=== PATIENT | male | born 1935 | race Asian ===

== ENCOUNTER 2016-12-03 03:06 | Emergency (ER) | payer OTHER ==
[~2016-12-03] VITALS: Ht 167.6 cm; Wt 61.8 kg
[~2016-12-03 03:06] MED LIST: AMIT10TA6 GT; ASPI-482 PO; ATOR10TA84 PO; BENA40TA67 PO; FEXO180T PO; METO-391 PO; OLME40 PO; RABE20TA60 PO
[2016-12-03] MEDS ORDERED: IBUPROFEN 600 MG TABLET PO ONE (03:30)
[2016-12-03] MEDS ORDERED: ALLO100T PO (03:31)
[2016-12-03] MEDS ORDERED: VITAD1000 PO (03:31)
[2016-12-03] MEDS ORDERED: LOSA50TA37 PO (03:31)
[2016-12-03] MEDS ORDERED: HYDR25TA84 PO (03:31)
[2016-12-03] MEDS ORDERED: CARV12 PO (03:31)
[2016-12-03] MEDS ORDERED: LEVO5TAB13 PO (03:31)
[2016-12-03] MEDS ORDERED: DONE5TAB5 PO (03:31)
[2016-12-03] MEDS ORDERED: ASPI81 PO (03:31)
[2016-12-03] MEDS ORDERED: OS500 PO (03:31)
[2016-12-03 03:35] LABS: BASOPHILS % (AUTO) 0.1 % (0.0-2.0); EOSINOPHILS % (AUTO) 0.5 % (1.0-6.0); HEMATOCRIT 39.7 % (41-53); HEMOGLOBIN 13.5 g/dL (13.5-17.5); LYMPHOCYTES # (AUTO) 1.1 K/uL (1.0-4.8); LYMPHOCYTES % (AUTO) 8.2 % (22.0-44.0); MEAN CORPUSCULAR HEMOGLOBIN 29.9 pg (26.0-34.0); MEAN CORPUSCULAR VOLUME 88 fL (80-100); MONOCYTES # (AUTO) 1.3 K/uL (0.1-1.0); MONOCYTES % (AUTO) 10.2 % (2.0-9.0); NEUTROPHILS # (AUTO) 10.7 K/uL (1.8-7.7); PLATELET COUNT (AUTO) 252 K/uL (150-450); RED BLOOD CELL COUNT(AUTO) 4.51 MIL/uL (4.50-5.90); RED CELL DISTRIBUTION WIDTH 15.3 % (11.5-14.5); WHITE BLOOD COUNT (AUTO) 13.2 K/uL (4.5-11.0)
[2016-12-03] MEDS ORDERED: LIDOCAINE HCL 1% 10 ML VIAL INJ ONE (03:45)
[2016-12-03 03:46] LABS: CALCIUM, TOTAL 9.4 mg/dL (8.8-10.5); CREATININE 1.18 mg/dL (0.60-1.30); POTASSIUM 3.1 mmol/L (3.5-5.1)
[2016-12-03 03:51] LABS: TOTAL PROTEIN, SERUM 7.2 g/dL (6.4-8.2)
[2016-12-03] MEDS ORDERED: POVIDONE-IODINE 10% 15 ML SOLUTION UD TP ONE (04:00)
[2016-12-03] MEDS ORDERED: OxyCODONE HCL/ACETAMINOPHEN 5-325 MG TABLET PO ONE (04:15)
[2016-12-03] MEDS ORDERED: MORPHINE SULFATE 4 MG/ML SYRINGE IM ONE (04:45)
[2016-12-03 05:00] VITALS: BP 170/83
== END 2016-12-03 05:14 | disposition home or self-care (01) ==
LOC: EMS 03:06
DX: M70.51 Other bursitis of knee, right knee (principal); E87.6 Hypokalemia; Z79.82 Long term (current) use of aspirin
CPT/HCPCS: 20610; 36415; 73562; 80053; 85025; 96372; 99285; J2270; J3490

== ENCOUNTER → 2017-01-06 | Outpatient (CLI) | payer OTHER ==
[~2017-01-06] MED LIST changes: +ALLO100T PO; -AMIT10TA6 GT; -ASPI-482 PO; +ASPI81 PO; +ATOR20TA86 PO; -BENA40TA67 PO; +CARV12 PO; +DONE5TAB5 PO; -FEXO180T PO; +HYDR25TA84 PO; +IBUP-2071 PO; +LEVO5TAB13 PO; +LOSA50TA37 PO; -METO-391 PO; -OLME40 PO; +OS500 PO; +OXYC-530 PO; -RABE20TA60 PO; +VITAD1000 PO
== END | disposition home or self-care (01) ==
LOC: RADPV 12:17
PROVIDERS: ATTEND Internal Medicine Nephrology
DX: N18.3 Chronic kidney disease, stage 3 (moderate) (principal); N28.1 Cyst of kidney, acquired
CPT/HCPCS: 76770

== ENCOUNTER 2017-01-17 11:56 | Emergency (ER) | payer OTHER ==
[~2017-01-17] VITALS: Ht 167.6 cm; Wt 63.6 kg
[~2017-01-17 11:56] MED LIST changes: -ATOR20TA86 PO; -IBUP-2071 PO; -OXYC-530 PO
[2017-01-17] MEDS ORDERED: IBUP-2071 PO (12:07)
[2017-01-17] MEDS ORDERED: OXYC-530 PO (12:07)
[2017-01-17] MEDS ORDERED: ATOR20TA86 PO (12:15)
[2017-01-17] MEDS ORDERED: IBUPROFEN 600 MG TABLET PO ONE (12:15)
[2017-01-17] MEDS ORDERED: ACETAMINOPHEN 325 MG TABLET PO ONE (12:15)
[2017-01-17 12:33] LABS: BASOPHILS % (AUTO) 0.3 % (0.0-2.0); HEMATOCRIT 40.2 % (41-53); HEMOGLOBIN 13.5 g/dL (13.5-17.5); LYMPHOCYTES # (AUTO) 1.2 K/uL (1.0-4.8); LYMPHOCYTES % (AUTO) 16.9 % (22.0-44.0); MEAN CORPUSCULAR HEMOGLOBIN 29.9 pg (26.0-34.0); MEAN CORPUSCULAR HGB CONC 33.5 G/dL (31.0-37.0); MEAN CORPUSCULAR VOLUME 89 fL (80-100); MONOCYTES # (AUTO) 0.8 K/uL (0.1-1.0); NEUTROPHILS % (AUTO) 70.8 % (40.0-70.0); PLATELET COUNT (AUTO) 238 K/uL (150-450); RED CELL DISTRIBUTION WIDTH 17.1 % (11.5-14.5)
[2017-01-17 12:37] LABS: RBC MORPHOLOGY COMMENT ABNORMAL RBC MORPH
[2017-01-17 12:42] LABS: ANION GAP 8 mmol/L (8-16); CALCIUM, TOTAL 8.6 mg/dL (8.8-10.5); CARBON DIOXIDE 27 mmol/L (22-29); CHLORIDE 105 mmol/L (98-107); CREATININE 1.05 mg/dL (0.60-1.30); GLOMERULAR FILTR. RATE CALC > 60 mL/min (>60); POTASSIUM 3.2 mmol/L (3.5-5.1); SODIUM SERUM 140 mmol/L (136-145); UREA NITROGEN, BLOOD 17 mg/dL (7-18)
[2017-01-17 13:10] VITALS: BP 180/86
== END 2017-01-17 13:23 | disposition home or self-care (01) ==
LOC: EMS 11:58
DX: R51 Headache (principal); I10 Essential (primary) hypertension; E78.00 Pure hypercholesterolemia, unspecified; F17.210 Nicotine dependence, cigarettes, uncomplicated
CPT/HCPCS: 70450; 99285